=== PATIENT | female | born 1960 | race Caucasian/White ===

== ENCOUNTER 2023-04-14 09:40 | Day surgery (SDC) | payer MEDICARE ==
[2023-04-14] MEDS ORDERED: LIDOCAINE HCL 2% 100 MG/5 ML IJ ONE (09:41)
[2023-04-14] MEDS ORDERED: Depo-Medrol 40 MG/ML IM ONE (09:41)
[2023-04-14] MEDS ORDERED: Pepcid 20 MG VIAL IV ONE (09:57)
[2023-04-14] MEDS ORDERED: Reglan 10 MG/2 ML ONE (09:57)
[2023-04-14] MEDS ORDERED: DIPRIVAN 200 MG/20 ML IV ONE (10:59)
[2023-04-14] MEDS ORDERED: Ketamine HCl 50 MG/ML ONE (11:03)
[2023-04-14] MEDS ORDERED: Versed 2 MG/2 ML Injection ONE (11:03)
--- NOTE | 2023-04-14 13:49 | XRAY ---
Indication: Bilateral L4-S1 MBB. Intraoperative fluoroscopy provided for 18 seconds. Single digital spot image submitted for interpretation demonstrates posterior needle tips projecting over the expected left and right L4-S1 nerve roots. Correlate with intraoperative findings/report.
[2023-04-14] MEDS ORDERED: Lactated Ringers 1,000 ML IV ONE (14:11)
--- NOTE | 2023-04-14 15:57 | XRAY ---
18 seconds of fluoroscopy was used in surgery for a bilateral L4-S1 MBB.
== END 2023-04-14 11:08 | disposition home or self-care (01) ==
LOC: SDC-PAIN 09:40
PROVIDERS: ATTEND Psychiatry & Neurology Pain Medicine
DX: M47.816 Spondylosis without myelopathy or radiculopathy, lumbar region (principal); E11.9 Type 2 diabetes mellitus without complications; Z79.899 Other long term (current) drug therapy
CPT/HCPCS: 64493; 64494; 72020; 77002; 82947; J1030; J2250; J2704

== ENCOUNTER 2023-05-12 09:42 | Day surgery (SDC) | payer MEDICARE ==
[2023-05-12] MEDS ORDERED: BUPIVACAINE 0.5% VIAL IJ ONE (09:43)
[2023-05-12] MEDS ORDERED: Depo-Medrol 40 MG/ML IM ONE (09:43)
[2023-05-12] MEDS ORDERED: DIPRIVAN 200 MG/20 ML IV ONE ×2 (11:26→11:39)
[2023-05-12] MEDS ORDERED: Xylocaine-Mpf 2% 5 Ml Vial ONE (11:29)
--- NOTE | 2023-05-12 12:53 | XRAY ---
Indication: Bilateral L4-S1 MBB. Intraoperative fluoroscopy provided for 15 seconds. Single digital spot image submitted for interpretation demonstrates posterior needle tips projecting over the expected left and right L4-S1 nerve roots. Correlate with intraoperative findings/report.
--- NOTE | 2023-05-12 13:38 | XRAY ---
15 seconds of fluoroscopy was used in surgery for a bilateral L4-S1 MBB.
[2023-05-12] MEDS ORDERED: Lactated Ringers 1,000 ML IV ONE (15:44)
== END 2023-05-12 11:55 | disposition home or self-care (01) ==
LOC: SDC-PAIN 09:42
PROVIDERS: ATTEND Psychiatry & Neurology Pain Medicine
DX: M47.816 Spondylosis without myelopathy or radiculopathy, lumbar region (principal); E11.9 Type 2 diabetes mellitus without complications; Z79.899 Other long term (current) drug therapy
CPT/HCPCS: 64493; 64494; 72020; 77002; 82947; J1030; J2704

== ENCOUNTER 2023-07-07 10:07 | Day surgery (SDC) | payer MEDICARE ==
[2023-07-07] MEDS ORDERED: BUPIVACAINE 0.5% VIAL IJ ONE (10:08)
[2023-07-07] MEDS ORDERED: LIDOCAINE HCL 1% 50 MG/5 ML VL PF IJ ONE (10:08)
[2023-07-07] MEDS ORDERED: Depo-Medrol 40 MG/ML IM ONE (10:08)
[2023-07-07] MEDS ORDERED: DIPRIVAN 200 MG/20 ML IV ONE ×2 (12:05→12:23)
[2023-07-07] MEDS ORDERED: Xylocaine-Mpf 2% 5 Ml Vial ONE (12:18)
--- NOTE | 2023-07-07 13:08 | XRAY ---
Indication: Left L4-S1 RFA. Intraoperative fluoroscopy provided for 41 seconds. 3 digital spot image submitted for interpretation demonstrates posterior needle tips projecting over the expected left L4-S1 nerve roots. Correlate with intraoperative findings/report.
[2023-07-07] MEDS ORDERED: Lactated Ringers 1,000 ML IV ONE (13:11)
--- NOTE | 2023-07-07 13:30 | XRAY ---
41 seconds of fluoroscopy was used in surgery for a left L4-S1 RFA.
== END 2023-07-07 12:50 | disposition home or self-care (01) ==
LOC: SDC-PAIN 10:07
PROVIDERS: ATTEND Psychiatry & Neurology Pain Medicine
DX: M47.816 Spondylosis without myelopathy or radiculopathy, lumbar region (principal); E11.9 Type 2 diabetes mellitus without complications; Z79.899 Other long term (current) drug therapy
CPT/HCPCS: 64635; 64636; 72100; 77002; 82947; J1030; J2001; J2704

== ENCOUNTER 2023-07-14 09:59 | Day surgery (SDC) | payer MEDICARE ==
[2023-07-14] MEDS ORDERED: Depo-Medrol 40 MG/ML IM ONE (10:00)
[2023-07-14] MEDS ORDERED: BUPIVACAINE 0.5% VIAL IJ ONE (10:00)
[2023-07-14] MEDS ORDERED: XYLOCAINE 1% HCL 20 ML MDV IJ ONE (10:00)
[2023-07-14] MEDS ORDERED: DIPRIVAN 200 MG/20 ML IV ONE (12:08)
[2023-07-14] MEDS ORDERED: Versed 2 MG/2 ML Injection ONE ×2 (12:18→12:24)
--- NOTE | 2023-07-14 12:52 | XRAY ---
Indication: Right L4-S1 RFA. Intraoperative fluoroscopy provided for 28 seconds. 5 digital spot images submitted for interpretation demonstrates posterior needle tips projecting over the expected right L4-S1 nerve roots. Correlate with intraoperative findings/report.
[2023-07-14] MEDS ORDERED: Lactated Ringers 1,000 ML IV ONE (15:00)
--- NOTE | 2023-07-16 11:32 | XRAY ---
28 seconds of fluoroscopy was used in surgery for a right L4-S1 RFA.
== END 2023-07-14 12:00 | disposition home or self-care (01) ==
LOC: SDC-PAIN 09:59
PROVIDERS: ATTEND Psychiatry & Neurology Pain Medicine
DX: M47.816 Spondylosis without myelopathy or radiculopathy, lumbar region (principal); E11.9 Type 2 diabetes mellitus without complications; Z79.899 Other long term (current) drug therapy
CPT/HCPCS: 64635; 64636; 72100; 77002; 82947; J1030; J2250; J2704

== ENCOUNTER 2023-12-22 08:41 | Day surgery (SDC) | payer MEDICARE ==
[2023-12-22] MEDS ORDERED: Decadron 4 MG INJ IV ONE (08:42)
[2023-12-22] MEDS ORDERED: Sodium Chloride 0.9(Preservative Free) 10 ML IJ ONE (08:42)
[2023-12-22] MEDS ORDERED: DIPRIVAN 200 MG/20 ML IV ONE (10:26)
[2023-12-22] MEDS ORDERED: MORPHINE SULFATE 2 MG INJ ONE ×2 (10:44→10:53)
--- NOTE | 2023-12-22 12:04 | XRAY ---
Indication: Left L4-S1 transforaminal JOEL. Intraoperative fluoroscopy provided for 32 seconds. 4 digital spot image submitted for interpretation demonstrates posterior needle tips projecting over the expected left L4 and L5 nerve roots. Small amount of contrast injected for needle tip placement. Correlate with intraoperative findings/report.
--- NOTE | 2023-12-22 12:09 | XRAY ---
32 seconds of fluoroscopy was used in surgery for a left L4-S1 transforaminal JOEL.
[2023-12-22] MEDS ORDERED: Lactated Ringers 1,000 ML IV ONE (14:21)
== END 2023-12-22 11:17 | disposition home or self-care (01) ==
LOC: SDC-PAIN 08:41
PROVIDERS: ATTEND Psychiatry & Neurology Pain Medicine
DX: M54.16 Radiculopathy, lumbar region (principal); E11.9 Type 2 diabetes mellitus without complications
CPT/HCPCS: 64483; 64484; 72100; 77003; 82947; J1100; J2270; J2704; Q9966

== ENCOUNTER 2024-02-23 07:59 | Day surgery (SDC) | payer MEDICARE ==
[2024-02-23] MEDS ORDERED: LIDOCAINE HCL 1% 50 MG/5 ML VL PF IJ ONE (08:00)
[2024-02-23] MEDS ORDERED: Decadron 4 MG INJ IV ONE (08:00)
[2024-02-23] MEDS ORDERED: DIPRIVAN 200 MG/20 ML IV ONE (10:15)
[2024-02-23] MEDS ORDERED: Lactated Ringers 1,000 ML IV ONE (11:01)
--- NOTE | 2024-02-23 12:08 | XRAY ---
11 seconds of fluoroscopy was used in surgery for a left piriformis injection.
--- NOTE | 2024-02-23 12:09 | XRAY ---
Indication: Left piriformis injection. Intraoperative fluoroscopy provided for 11 seconds. Single digital spot image submitted for interpretation demonstrates posterior needle tip projecting over expected left piriformis. Small amount of contrast injected for needle tip placement. Correlate with intraoperative findings/report.
== END 2024-02-23 10:50 | disposition home or self-care (01) ==
LOC: SDC-PAIN 07:59
PROVIDERS: ATTEND Psychiatry & Neurology Pain Medicine
DX: M79.18 Myalgia, other site (principal); E11.9 Type 2 diabetes mellitus without complications
CPT/HCPCS: 20552; 72170; 77002; 82947; J1100; J2001; J2704; Q9966